=== PATIENT | male | born 1970 | race Hispanic/Latino ===

== ENCOUNTER 2022-02-21 04:37 | Observation (INO) | payer BC ==
--- OUTSIDE RECORDS SUMMARY | 2022-02-21 04:40 | XMS REPORT | Continuity of Care Document ---
:1970 Author Organization [facility] t Address [address] [place] [address] [address]. [address] [place] [address] Care Team Providers Name Role Phone Sulma Robledo Primary Care Physician RON MERRILL Attending Clinician Unavailable Doctor Unassigned, [place] Attending Clinician Unavailable MEHRDAD GODWIN Attending Clinician Unavailable Marianne Guerra MD Attending Clinician Irineo Salomon MD Attending Clinician SULMA WILLIAM Attending Clinician Unavailable SULMA WILLIAM Admitting Clinician Unavailable Payers Payer Name Policy Type Policy Number Effective Date Expiration Date S apple [facility] 2 [id number] 2021 00:00:00 Problems Condition Condition Condition Status Onset Resolution Last Treating Co mments Source Name Details Category Date Date Treatment Clinician Date Elevated Elevated Disease Active Unive rs hemoglobin hemoglobin 5-23 it y of 00:: [address] Elevated Elevated Disease Active Unive rs AST (SGOT) AST (SGOT) 5-23 it y of 00:00: [address] Essential Essential Disease Active Uni vers hypertensi hypertensi 5-17 it y of on on 00:: [address] Obesity Obesity Disease Active Univers (BMI (BMI 5-17 ity of 30.0-34.9) 30.0-34.9[place] [address] [place] [address] Branch Lower Lower Disease Active Univers abdominal abdominal 5-17 ity of pain pain 00:00: [address] [place] Psoriasis Psoriasis Disease Active Uni vers 5-17 ity of 00:00: [place] [address] Medical [place] Allergies, Adverse Reactions, Alerts Allergy Allergy Status Severity Reaction(s) Onset Inactive Treating Comm ents Source Name Type Date Date Clinician NO KNOWN Drug Active Univers ALLERGIE Class ity of S [facility] Social History Social Habit Start Date Stop Date Quantity Comments Source History SDAZ University o f Alcohol Frequency [facility] edical Branch History SDAZ University o f Alcohol Binge [place] [facility] [place] Exposure to Not sure University of SARS-CoV-2 [place] [facility] (event) Branch History [facility] University o f Alcohol Comment [place] [facility] ical [place] History of Snuff User University of tobacco use [facility] Alcohol intake 2021-08-30 2021-08-30 1.14 /d University of 00:00:00 00:00:00 [facility] Tobacco use and 2019-05-31 2019-05-31 Current user Univers ity of exposure 00:00:00 00:00:00 [facility] History SDOH 2019-05-31 2019-05-31 4 University o f Alcohol Std 00:00:00 00:00:00 [facility] Drinks [place] Tobacco Comment 2019-05-31 2019-05-31 several Universit y of 00:00:00 00:00:00 [facility] Sex Assigned At [birth year] Universit y of 00:00:00 00:00:00 [facility] Smoking Status Start Date Stop Date Source Current some day smoker 2019-05-31 00:00:00 [facility] Medications Ordered Filled Start Stop Current Ordering Indication Dosage Frequency Signature Comments Components Source Medication Medication Date Date Medication? Clinician (SIG) Name Name metformin Yes [id number] 500mg Take 1 Univers ER 500 mg 3-14 tablet by ity o f 24 hr 00:00: mouth 2 [place] tablet 00 (two) Medical times [place] daily with meals. methylPREDN 2020-06 Yes [id number] 84mg Take 21 Univers ISolone 1-08 tablets by ity of (MEDROL, 00:00: mouth [place] MATI,) 4 mg 00 SEE-INSTRU Med ical tablets CTIONS. Branch follow package directions diclofenac 2020-06 Yes [id number] 75mg Take 1 U nivers 75 mg EC 1-08 tablet by ity of tablet 00:00: mouth 2 [place] 00 (two) Medical times Branch daily with meals. methylPREDN 2020-06 Yes [id number] 84mg Take 21 Univers ISolone 1-08 tablets by ity of (MEDROL, 00:00: mouth [place] MATI,) 4 mg 00 SEE-INSTRU Med ical tablets CTIONS. Branch follow package directions diclofenac 2020-06 Yes [id number] 75mg Take 1 U nivers 75 mg EC 1-08 tablet by ity of tablet 00:00: mouth 2 [place] 00 (two) Medical times Branch daily with meals. Ustekinumab 2018-06 Yes 45mg inject 45 U nivers (STELARA) 2-13 mg under ity of 45 mg/0.5 09:57: [place] SC 45 once now. Medical injection Branch bisoprolol 2018-06 Yes 5mg Take 5 mg Un holli 5 mg tablet 2-13 by mouth ity of 09:57: daily. [place] [address] Medical [place] Ustekinumab 2018-06 Yes 45mg inject 45 U nivers (STELARA) 2-13 mg under ity of 45 mg/0.5 09:57: [place] SC 45 once now. Medical injection Branch bisoprolol 2018-06 Yes 5mg Take 5 mg Un holli 5 mg tablet 2-13 by mouth ity of 09:57: daily. [place] [address] Medical Branch Ustekinumab 2018-06 Yes 45mg inject 45 U nivers (STELARA) 2-13 mg under ity of 45 mg/0.5 09:57: [place] SC 45 once now. Medical injection Branch Ustekinumab 2018-06 Yes 45mg inject 45 U nivers (STELARA) 2-13 mg under ity of 45 mg/0.5 09:57: [place] SC 45 once now. Medical injection Branch Ustekinumab 2018-06 Yes 45mg inject 45 U nivers (STELARA) 2-13 mg under ity of 45 mg/0.5 09:57: [place] SC 45 once now. Medical injection Branch Immunizations Ordered Filled Immunization Date Status Comments [facility] Immunization Name Name Influenza Virus 2019-03-19 Completed Universit y of Vaccine 00:00:00 [facility] Influenza Virus 2019-03-19 Completed Universit y of Vaccine 00:00:00 [facility] Influenza Virus 2019-03-19 Completed Universit y of Vaccine 00:00:00 [facility] Influenza Virus 2019-03-19 Completed Universit y of Vaccine 00:00:00 [facility] Influenza Virus 2019-03-19 Completed Universit y of Vaccine 00:00:00 [facility] Vital Signs Vital Name Observation Time Observation Value Comments Source Systolic blood 2021-04-26 20:39:00 149 mm[Hg] Univer sity [facility] Diastolic blood 2021-04-26 20:39:00 99 mm[Hg] Unive rsity [facility] Heart rate 2021-04-26 20:27:00 98 /min [facility] Body height 2021-04-26 20:27:00 170.2 cm [facility] Body weight 2021-04-26 20:27:00 92.987 kg [facility] BMI 2021-04-26 20:27:00 32.11 kg/m2 [facility] Procedures Procedure Date / Time Performed Performing Clinician [facility] REFERRAL- 2021-09-06 05:01:00 [facility] Encounters Start End Encounter Admission Attending Care Care Encounter Source Date/Time Date/Time Type Type Clinicians Facility Department ID 2021-11-08 2021-11-08 Outpatient RON MERRILL [id number] [place] 14:00:00 14:00:00 Seybol d 2021-09-06 2021-09-06 Orders Doctor TANG [id number] Univers 00:00:00 00:00:00 Only Unassigned, ZEFERINO [id number] ity of [place] [facility] [id number] [place] [phone] [address] 2021-09-02 2021-09-02 Outpatient Errol GODWIN [facility] [id number] Univers 11:30:00 11:30:00 MEHRDAD [id number] itsuzette [facility] 2021-08-30 2021-08-30 Outpatient Errol GODWIN [facility] [id number] Univers 10:00:00 10:09:25 MEHRDAD [facility] 2021-08-30 2021-08-30 Outpatient Errol GODWIN [facility] [id number] Univers 10:00:00 10:00:00 MEHRDAD [id number] [facility] 2021-08-27 2021-08-[address] [facility] [id number] Univers 00:00:00 00:00:00 KRIST[place] [id number] [id number] [phone] Me dical AND [address] [place] [address] E CLINIC 2021-08-25 2021-08-25 Outpatient Errol GODWIN [facility] [id number] [id number] Univers 15:15:00 15:15:00 MEHRDAD [id number] [facility] 2021-08-25 2021-08-25 Outpatient Errol GODWIN [facility] [id number] Univers 15:00:00 15:05:20 MEHRDAD [facility] 2021-08-25 2021-08-25 Telephone Charlie, [facility] [id number] Univers 00:00:00 00:00:00 KRISTAL [id number] it y of [facility] [id number] [phone] Me dicmn AND [address] [place] [address] E CLINIC 2021-04-26 2021-04-26 [facility] [id number] Univers 14:18:16 14:55:01 Visit [facility] [id number] it y of [place] [id number] [place]?BLEA [phone] Hi dical [address] MEDICAL OFFICE BUILDING 2019-05-31 2019-05-31 Outpatient Errol WILLIAM [facility] [id number] Univers 11:02:12 23:59:00 SULMA [facility] Results This patient has no known results.
[2022-02-21] MEDS ORDERED: MORPHINE 4 MG/ML SYR ONE (05:26)
[2022-02-21] MEDS ORDERED: NA CHLORIDE 0.9% 1,000 ML ONE (05:27)
[2022-02-21] MEDS ORDERED: CEFTRIAXONE 2000 MG/VIAL ONE (05:27)
[2022-02-21] MEDS ORDERED: METRONIDAZOLE 500mg IVPB 500 MG/100 ML BAG IV ONE (05:27)
[2022-02-21] MEDS ORDERED: ONDANSETRON 4 MG/2 ML VIAL ONE (05:27)
[2022-02-21] MEDS ORDERED: NA CHLORIDE 0.9% 100 ML ONE ×2 (05:27→08:45)
[2022-02-21] MEDS ORDERED: CIPROFLOXACIN 400mg IV 400 MG/200 ML BAG IV ONE (05:27)
[2022-02-21 05:43] LABS: Absolute Lymphocytes (CBC) 1.5 K/uL (0.7-4.9); Hematocrit 46.3 % (39.6-49.0); Lymphocytes % 13.9 % (15.3-44.8); MCV 91.2 fL (80-100); MPV 8.6 fL (7.6-11.3); RBC Red Blood Cell Count 5.08 M/uL (4.33-5.43)
[2022-02-21 05:48] LABS: SARS-CoV-2 Antigen Rapid Res Negative (Negative)
[2022-02-21 05:54] LABS: Protime INR 1.12
[2022-02-21 05:58] LABS: Albumin 3.3 g/dL (3.4-5.0); Bilirubin Direct 0.2 mg/dL (0-0.2); Bilirubin Total 0.4 mg/dL (0.2-1.0); Magnesium 2.3 mg/dL (1.8-2.4); Potassium 3.4 mmol/L (3.5-5.1); Protein, Total 7.2 g/dL (6.4-8.2)
[2022-02-21] MEDS ORDERED: POTASSIUM 25 MEQ EFFERV TAB ONE (06:37)
[2022-02-21 07:21] LABS: Urine Blood Negative (Negative); Urine Glucose 3+ (Negative); Urine Protein Negative (Negative); Urine Specific Gravity 1.015 (1.005-1.030)
--- NOTE | 2022-02-21 07:24 | EDPHYS ---
Physician Documentation [facility] Name: Derrick Robles Age: 51 yrs Sex: Male : 1970 Arrival Date: 02/21/2022 Time: 04:40 Bed 8 Private MD: MARIA ESTHER Physician Fili Griggs HPI: 02/21 05:55 This 51 yrs old Male presents to ER via Ambulatory with complaints of derrell Abdominal Pain. 05:55 The patient presents with abdominal pain in the lower abdomen, in the left lower derrell quadrant, abdominal distention in the upper abdomen, in the lower abdomen. Onset: The symptoms/episode began/occurred 2 day(s) ago. The symptoms do not radiate. Associated signs and symptoms: none. The symptoms are described as constant, crampy. Modifying factors: The symptoms are alleviated by nothing, the symptoms are aggravated by movement, pressure, touching the area. Severity of pain: At its worst the pain was moderate in the emergency department the pain is unchanged. The patient has experienced similar episodes in the past, a few times. Historical: - Allergies: 04:46 No Known Allergies; kl - Home Meds: 04:46 metformin 500 mg Oral Tb24 1 tab once daily [Active]; bisoprolol fumarate 5 mg oral tab kl 1 tab once daily [Active]; Jardiance 10 mg oral tab 1 tab once daily [Active]; - PMHx: 04:46 Diabetes mellitus; Hypertensive disorder; kl - Immunization history:: Adult Immunizations not up to date. - Family history:: not pertinent. - Social history:: Smoking status: unknown. ROS: 05:55 Constitutional: Negative for fever, chills, and weight loss, Eyes: Negative for injury, derrell pain, redness, and discharge, ENT: Negative for injury, pain, and discharge, Neck: Negative for injury, pain, and swelling, Cardiovascular: Negative for chest pain, palpitations, and edema, Respiratory: Negative for shortness of breath, cough, wheezing, and pleuritic chest pain, Back: Negative for injury and pain, : Negative for injury, bleeding, discharge, and swelling, MS/Extremity: Negative for injury and deformity, Skin: Negative for injury, rash, and discoloration, Neuro: Negative for headache, weakness, numbness, tingling, and seizure, Psych: Negative for depression, anxiety, suicide ideation, homicidal ideation, and hallucinations, Allergy/Immunology: Negative for hives, rash, and allergies, Endocrine: Negative for neck swelling, polydipsia, polyuria, polyphagia, and marked weight changes. 05:55 Abdomen/GI: Positive for abdominal pain, abdominal cramps, abdominal distension, of the left upper quadrant and left lower quadrant. Exam: 05:55 Constitutional: This is a well developed, well nourished patient who is awake, alert, derrell and in no acute distress. Head/Face: Normocephalic, atraumatic. Eyes: Pupils equal round and reactive to light, extra-ocular motions intact. Lids and lashes normal. Conjunctiva and sclera are non-icteric and not injected. Cornea within normal limits. Periorbital areas with no swelling, redness, or edema. ENT: Nares patent. No nasal discharge, no septal abnormalities noted. Tympanic membranes are normal and external auditory canals are clear. Oropharynx with no redness, swelling, or masses, exudates, or evidence of obstruction, uvula midline. Mucous membranes moist. Neck: Trachea midline, no thyromegaly or masses palpated, and no cervical lymphadenopathy. Supple, full range of motion without nuchal rigidity, or vertebral point tenderness. No Meningismus. Chest/axilla: Normal chest wall appearance and motion. Nontender with no deformity. No lesions are appreciated. Cardiovascular: Regular rate and rhythm with a normal S1 and S2. No gallops, murmurs, or rubs. Normal PMI, no JVD. No pulse deficits. Abdomen/GI: Soft, non-tender, with normal bowel sounds. No distension or tympany. No guarding or rebound. No evidence of tenderness throughout. Back: No spinal tenderness. No costovertebral tenderness. Full range of motion. Male : Normal genitalia with no discharge or lesions. Skin: Warm, dry with normal turgor. Normal color with no rashes, no lesions, and no evidence of cellulitis. MS/ Extremity: Pulses equal, no cyanosis. Neurovascular intact. Full, normal range of motion. Neuro: Awake and alert, GCS 15, oriented to person, place, time, and situation. Cranial nerves II-XII grossly intact. Motor strength 5/5 in all extremities. Sensory grossly intact. Cerebellar exam normal. Normal gait. Psych: Awake, alert, with orientation to person, place and time. Behavior, mood, and affect are within normal limits. 05:55 ECG was reviewed by the Attending Physician. 05:55 Respiratory: the patient does not display signs of respiratory distress, Respirations: normal, Breath sounds: are clear throughout, Respiratory rate: 18 Vital Signs: 04:44 BP 130 / 93; Pulse 81; Resp 18; Temp 97.6(TE); Pulse Ox 99% on R/A; Weight 90.72 kg; kl Height 5 ft. 8 in. (172.72 cm); Pain 9/10; 05:22 BP 131 / 93; Pulse 77; Resp 18; Pulse Ox 99% on R/A; tw5 06:29 Pain 5/10; tw5 06:33 Pulse 75; Resp 18; Pulse Ox 100% on R/A; tw5 07:26 BP 114 / 82; Pulse 68; Resp 16; Pulse Ox 99% ; Pain 2/10; mb8 08:08 BP 119 / 104; Pulse 87; Resp 20; Pulse Ox 98% ; Pain 2/10; mb8 04:44 Body Mass Index 30.41 (90.72 kg, 172.72 cm) kl MDM: 05:28 Patient medically screened. derrell 05:58 Differential diagnosis: bowel obstruction, diverticulitis, gastritis, non-specific abd derrell pain, pancreatitis, Peptic Ulcer Disease. Data reviewed: nurses notes. Data interpreted: quality assurance monitor chassis: not applicable for this patient encounter. Pulse oximetry: on room air is 99 %. Test interpretation: by ED physician or midlevel provider: ECG, plain radiologic studies. Counseling: I had a detailed discussion with the patient and/or guardian regarding: the historical points, exam findings, and any diagnostic results supporting the discharge/admit diagnosis, lab results, radiology results, the need for further work-up and treatment in the hospital. 02/21 05:08 Order name: Basic Metabolic Panel; Complete Time: 06:24 derrell 02/21 05:08 Order name: CBC with Diff; Complete Time: 05:47 derrell 02/21 05:08 Order name: LFT's; Complete Time: 06:24 derrell 02/21 05:08 Order name: Magnesium; Complete Time: 06:24 derrell 02/21 05:08 Order name: NT PRO-BNP; Complete Time: 06:24 derrell 02/21 05:08 Order name: PT-INR; Complete Time: 06:24 derrell 02/21 05:08 Order name: Troponin HS; Complete Time: 06:24 derrell 02/21 05:08 Order name: Lipase; Complete Time: 06:24 [facility] 02/21 05:08 Order name: SARS RAPID; Complete Time: 06:24 derrell 02/21 07:22 Order name: Urine Dipstick-Ancillary; Complete Time: 07:24 EDMS 02/21 08:21 Order name: CBC with Automated Diff EDMS 02/21 08:21 Order name: CBC with Automated Diff EDMS 02/21 08:21 Order name: Comprehensive Metabolic Panel EDMS 02/21 08:21 Order name: Comprehensive Metabolic Panel EDMS 02/21 05:08 Order name: XRAY Chest (1 view) [facility] 02/21 05:08 Order name: EKG; Complete Time: 05:09 [facility] 02/21 05:08 Order name: Cardiac monitoring; Complete Time: 05:24 [facility] 02/21 05:08 Order name: CT Abd/Pelvis - IV Contrast Only [facility] 02/21 08:18 Order name: CONS Physician Consult EDMS 02/21 08:21 Order name: NPO EDMS 02/21 08:21 Order name: Magnesium EDMS 02/21 08:21 Order name: Magnesium EDMS 02/21 11:31 Order name: Glucose, Ancillary Testing EDMS 02/21 05:08 Order name: EKG - Nurse/Tech; Complete Time: 05:24 [facility] 02/21 05:08 Order name: IV Saline Lock; Complete Time: 05:28 [facility] 02/21 05:08 Order name: Labs collected and sent; Complete Time: 05:33 [facility] 02/21 05:08 Order name: O2 Per Protocol; Complete Time: 05:24 [facility] 02/21 05:08 Order name: O2 Sat Monitoring; Complete Time: 05:24 [facility] 02/21 05:08 Order name: Urine Dipstick-Ancillary (obtain specimen); Complete Time: 07:21 [facility] EC:55 Rate is 18 beats/min. Rhythm is regular. QRS [place] is Normal. ME interval is normal. QRS derrell interval is normal. QT interval is normal. No Q waves. T waves are Normal. No ST changes noted. Clinical impression: NSR w/ Non-specific ST/T Changes and No evidence of ischemia. Interpreted by me. Reviewed by me. Administered Medications: 05:30 Drug: NS 0.9% 1000 ml Route: IV; Rate: 1 bolus; Site: right antecubital; tw5 05:34 Drug: morphine 4 mg Route: IVP; Infused Over: 4 mins; Site: right antecubital; tw5 06:29 Follow up: Pain 5/10 Adult; Response: No adverse reaction; Pain is decreased; RASS: tw5 Alert and Calm (0) 05:34 Drug: Zofran (Ondansetron) 4 mg Route: IVP; Site: right antecubital; tw5 06:29 Follow up: Response: No adverse reaction tw5 05:35 Drug: Rocephin (cefTRIAXone) 2 grams Route: IV; Rate: per protocol; Site: right tw5 antecubital; 06:29 Follow up: Response: No adverse reaction; IV Status: Completed infusion; IV Intake: tw5 100ml 05:44 Drug: Cipro (ciprofloxacin) 400 mg Volume: 200 ml; Route: IVPB; Infused Over: 60 mins; tw5 Site: left wrist; 05:44 Drug: Flagyl (metroNIDAZOLE) 500 mg Volume: 100 ml; Route: IVPB; Rate: 200 ml/hr; tw5 Infused Over: 30 mins; Site: left wrist; 06:30 Follow up: Response: No adverse reaction; IV Status: Completed infusion; IV Intake: tw5 100ml 06:31 Drug: Potassium Effervescent Tablet 25 mEq Route: PO; tw5 07:31 Follow up: Response: No adverse reaction mb8 Disposition Summary: 02/21/22 07:24 Hospitalization Ordered Hospitalization Status: Inpatient Admission derrell Provider: Yony Moran derrell Condition: Fair derrell Problem: new derrell Symptoms: have improved derrell Bed/Room Type: Standard derrell Location: Telemetry/MedSurg (Inpatient)(02/21/22 12:52) 3 Room Assignment: [facility](02/21/22 12:52) 3 Diagnosis - Diverticulitis of large intestine with perforation and abscess without bleeding derrell - Abdominal tenderness derrell - Hypokalemia derrell - Type 2 diabetes mellitus with hyperglycemia derrell Forms: - Medication Reconciliation Form derrell - SBAR form derrell Signatures: Dispatcher [employer] Lexy Naranjo RN RN kl Anderson, Corey, MD MD cha Attema, Lee, HOURLY SALES STAFF-C HOURLY SALES STAFF-Cla1 Radha Bolanos RN RN jl7 Dinora Warrne 3 Kimberley Phillips Tiffany 5 Ashok Lee RN mb8 Corrections: (The following items were deleted from the chart) 07:24 Telemetry/MedSurg (Inpatient) [facility] 11: 07:24 [facility] 12:52 11:17 [facility] 12: 11:17 [facility]
--- NOTE | 2022-02-21 07:24 | ER ---
Nurse's Notes [facility] Name: Derrick Robles Age: 51 yrs Sex: Male : 1970 Arrival Date: 02/21/2022 Time: 04:40 Bed 8 Private MD: Diagnosis: Diverticulitis of large intestine with perforation and abscess without bleeding;Abdominal tenderness;Hypokalemia;Type 2 diabetes mellitus with hyperglycemia Presentation: 02/21 04:44 Chief complaint: Patient states: left sided abdominal pain with abdominal bloating kl reports constipation as well. Coronavirus screen: Vaccine status: Patient reports being unvaccinated. Ebola Screen: Patient negative for fever greater than or equal to 101.5 degrees Fahrenheit, and additional compatible Ebola Virus Disease symptoms. Initial Sepsis Screen: Does the patient meet any 2 criteria? No. Patient's initial sepsis screen is negative. Does the patient have a suspected source of infection? No. Patient's initial sepsis screen is negative. Risk Assessment: Do you want to hurt yourself or someone else? Patient reports no desire to harm self or others. Onset of symptoms was February 18, 2022. 04:44 Method Of Arrival: Ambulatory 04:44 Acuity: JENNIFER 3 Triage Assessment: 04:49 General: Appears in no apparent distress. Behavior is calm, cooperative. Pain: kl Complains of pain in left upper quadrant and left lower quadrant Pain currently is 9 out of 10 on a pain scale. Aggravated by increased activity. GI: Reports constipation. Historical: - Allergies: 04:46 No Known Allergies; kl - Home Meds: 04:46 metformin 500 mg Oral Tb24 1 tab once daily [Active]; bisoprolol fumarate 5 mg oral tab kl 1 tab once daily [Active]; Jardiance 10 mg oral tab 1 tab once daily [Active]; - PMHx: 04:46 Diabetes mellitus; Hypertensive disorder; kl - Immunization history:: Adult Immunizations not up to date. - Family history:: not pertinent. - Social history:: Smoking status: unknown. Screenin:06 Abuse screen: Denies threats or abuse. Nutritional screening: No deficits noted. ke1 Tuberculosis screening: No symptoms or risk factors identified. Fall Risk None identified. Assessment: 05:06 GI: Bowel sounds diminished in suprapubic area, right upper quadrant, left upper ke1 quadrant, right lower quadrant and left lower quadrant Abd is soft Abdomen is tender to palpation in left upper quadrant and left lower quadrant. 05:22 General: Appears in no apparent distress. Behavior is calm, cooperative, appropriate tw5 for age. Pain: Pain currently is 5 out of 10 on a pain scale. at worst was 9 out of 10 on a pain scale. Aggravated by "When someone touches my stomach it hurts at a 9 or 10". Neuro: No deficits noted. GI: Reports constipation. 05:24 Cardiovascular: Rhythm is sinus rhythm. tw5 07:24 Reassessment: Patient and/or family updated on plan of care and expected duration. Pain mb8 level reassessed. Patient is alert, oriented x 3, equal unlabored respirations, skin warm/dry/pink. Patient reports feeling better, only details pain when LLQ is palpated. . 07:31 General: Dr. Griggs in room explaining results to patient. Patient will be admitted. .mb8 07:55 General: Dr. Moran in room with patient assessing him. . mb8 08:08 Reassessment: Patient and/or family updated on plan of care and expected duration. Pain mb8 level reassessed. Patient is alert, oriented x 3, equal unlabored respirations, skin warm/dry/pink. Patient states feeling better. Vital Signs: 04:44 BP 130 / 93; Pulse 81; Resp 18; Temp 97.6(TE); Pulse Ox 99% on R/A; Weight 90.72 kg; kl Height 5 ft. 8 in. (172.72 cm); Pain 9/10; 05:22 BP 131 / 93; Pulse 77; Resp 18; Pulse Ox 99% on R/A; tw5 06:29 Pain 5/10; tw5 06:33 Pulse 75; Resp 18; Pulse Ox 100% on R/A; tw5 07:26 BP 114 / 82; Pulse 68; Resp 16; Pulse Ox 99% ; Pain 2/10; mb8 08:08 BP 119 / 104; Pulse 87; Resp 20; Pulse Ox 98% ; Pain 2/10; mb8 04:44 Body Mass Index 30.41 (90.72 kg, 172.72 cm) ED Course: 04:40 Patient arrived in ED. bp1 04:46 Triage completed. kl 04:51 Thien Heard, RN is Primary Nurse. as6 04:51 Primary Nurse role handed off by Thien Heard RN tw5 04:51 Carla Paris is Primary Nurse. tw5 05:05 Fili Griggs MD is Attending Physician. [facility] 05:06 Arm band placed on. ke1 05:07 Bed in low position. Call light in reach. ke1 05:25 XRAY Chest (1 view) In Process Unspecified. EDMS 05:28 Inserted saline lock: 20 gauge in left wrist, using aseptic technique. tw5 05:32 Warm blanket given. Pillow given. business test analyst on. Pulse ox on. NIBP on. 5 05:32 Initial lab(s) drawn, by me, sent to lab. EKG done, by ED staff, reviewed by Fili Griggs MD COVID swab sent to lab. Inserted saline lock: 22 gauge in right antecubital area, using aseptic technique. Blood collected. 05:33 SARS RAPID Sent. 5 05:33 Lipase Sent. 5 05:33 Basic Metabolic Panel Sent. 5 05:33 CBC with Diff Sent. 5 05:33 LFT's Sent. 5 05:33 Magnesium Sent. 5 05:33 NT PRO-BNP Sent. 5 05:33 PT-INR Sent. 5 05:33 Troponin HS Sent. mh5 06:27 CT Abd/Pelvis - IV Contrast Only In Process Unspecified. EDMS 07:00 No provider procedures requiring assistance completed. Patient admitted, IV remains in jl7 place. intact, No redness/swelling at site. 07:07 Primary Nurse role handed off by Carla Paris mb8 07:07 Ashok Lee, GRICELDA is Primary Nurse. mb8 07:22 Yony Moran MD is Hospitalizing Provider. [facility] Administered Medications: 05:30 Drug: NS 0.9% 1000 ml Route: IV; Rate: 1 bolus; Site: right antecubital; tw5 05:34 Drug: morphine 4 mg Route: IVP; Infused Over: 4 mins; Site: right antecubital; tw5 06:29 Follow up: Pain 5/10 Adult; Response: No adverse reaction; Pain is decreased; RASS: tw5 Alert and Calm (0) 05:34 Drug: Zofran (Ondansetron) 4 mg Route: IVP; Site: right antecubital; tw5 06:29 Follow up: Response: No adverse reaction tw5 05:35 Drug: Rocephin (cefTRIAXone) 2 grams Route: IV; Rate: per protocol; Site: right tw5 antecubital; 06:29 Follow up: Response: No adverse reaction; IV Status: Completed infusion; IV Intake: tw5 100ml 05:44 Drug: Cipro (ciprofloxacin) 400 mg Volume: 200 ml; Route: IVPB; Infused Over: 60 mins; tw5 Site: left wrist; 05:44 Drug: Flagyl (metroNIDAZOLE) 500 mg Volume: 100 ml; Route: IVPB; Rate: 200 ml/hr; tw5 Infused Over: 30 mins; Site: left wrist; 06:30 Follow up: Response: No adverse reaction; IV Status: Completed infusion; IV Intake: tw5 100ml 06:31 Drug: Potassium Effervescent Tablet 25 mEq Route: PO; tw5 07:31 Follow up: Response: No adverse reaction mb8 Medication: 10:00 VIS not applicable for this client. jl7 Intake: 06:29 IV: 100ml; Total: 100ml. tw5 06:30 IV: 100ml; Total: 200ml. tw5 Outcome: 07:24 Decision to Hospitalize by Provider. derrell 10:00 Admitted to ER Hold. Please see [facility] for further documentation. jl7 10:00 Condition: stable 10:00 Discharge instructions given to patient, Instructed on the need for admit, Demonstrated understanding of instructions. 13:42 Patient left the ED. jl7 Signatures: Dispatcher [employer] EDMS Lexy Caldwell RN RN kl Anderson, Corey, MD MD cha Martinez, Maria [facility] Radha Bolanos RN RN jl7 Sharonda Anguiano Tiffany tw5 Thien Heard RN RN as6 Jatin Goldberg RN RN ke1 Ashok Lee RN RN mb8 Corrections: (The following items were deleted from the chart) 05:07 05:06 GI: Bowel sounds diminished in suprapubic area, right upper quadrant, left upper ke1 quadrant, right lower quadrant and left lower quadrant Abd is soft Abdomen is tender to palpation ke1
[2022-02-21] MEDS ORDERED: ONDANSETRON 4 MG/2 ML VIAL IV PRN (08:18)
--- NOTE | 2022-02-21 08:20 | P.HP ---
Certification for Inpatient Patient admitted to: Inpatient With expected LOS: >2 Midnights Practitioner: I am a practitioner with admitting privileges, knowledge of patient current condition, hospital course, and medical plan of care. Services: Services provided to patient in accordance with Admission requirements found in Title 42 Section 412.3 of the Code of Federal Regulations Patient History Date of Service: 02/21/22 Reason for admission: Sigmoid diverticulitis, with microperforation History of Present Illness: 51yo M, PMH: NIDDM2, HTN, Psoriasis Presents to ED due to lower abdominal pain for past 2-3 days. Pain worsened with eating and movement. Pain started diffusely and now in LLQ. Does not radiate. Nothing in particular relieved pain. Had similar episode >10 yrs ago. No fever/chills, no sick contacts. CT abd/pelvis revealed sigmoid with likely microperforation. Labs rather unremarkable, vitals WNL and stable. Admitted for further management. Allergies No Known Allergies Allergy (Verified 02/21/22 08:10) Home Medications: Empagliflozin [Jardiance] 1 tab PO DAILY 02/21/22 bisoproloL fumarate [Zebeta*] 1 tab PO DAILY 02/21/22 - Past Medical/Surgical History -: NIDDM2 -: HTN -: back - Family History Family History: Reviewed- Non-Contributory - Social History Smoking Status: Current some day smoker Alcohol use: Yes Place of Residence: Home Review of Systems 10-point ROS is otherwise unremarkable Physical Examination - Physical Exam General: Alert, In no apparent distress, Oriented x3 HEENT: EOMI, Sclerae nonicteric Neck: Supple, No LAD Respiratory: Clear to auscultation bilaterally, Normal air movement Cardiovascular: No edema, Regular rate/rhythm, No murmurs Gastrointestinal: Soft and benign, No rebound, Tenderness (LLQ) Musculoskeletal: No contractures, No tenderness Integumentary: No erythema, No warmth Neurological: Normal speech, Normal strength at 5/5 x4 extr - Studies Laboratory Data (last 24 hrs) 02/21/22 05:28: PT 12.4, INR 1.12 02/21/22 05:28: WBC 11.00 H, Hgb 15.7, Hct 46.3, Plt Count 159 02/21/22 05:28: Sodium 139, Potassium 3.4 L, BUN 11, Creatinine 0.68, Glucose 12 8 H, Magnesium 2.3, Total Bilirubin 0.4, AST 29, ALT 45, Alkaline Phosphatase 96, Lipase 123 Assessment and Plan - Advance Directives Does patient have a Living Will: No Does patient have a Durable POA for Healthcare: No Physician Review Additional Text: Problem list Sigmoid diverticulitis, with microperforation NIDDM 2 HTN Psoriasis Patient reports improvement of his pain, mostly in LLQ now No nausea/vomiting, no fever, no chills Patient does not appear septic Continue n.p.o. with IV fluids for now Empiric antibiotics with Zosyn Pain medication as needed General surgery consult Patient will need colonoscopy next few weeks as an outpatient VTE: Lovenox Code: Full Dispo: Home , ~2 days Time Spent Managing Pts Care (In Minutes): 70
[2022-02-21] MEDS ORDERED: D5.45NS W/KCL 20MEQ 1,000 ML IV ONE (08:45)
[2022-02-21] MEDS ORDERED: PIPERACIL/TAZO 3.375 GM VIAL IV ONE (08:45)
[2022-02-21] MEDS ORDERED: ENOXAPARIN 40 MG/0.4 ML SQ ONE (08:45)
[2022-02-21] MEDS: PIPER TAZO 3.375 GM in NA CHLORIDE 0.9% 100 ML IV SCH ×2 (08:49→17:37)
[2022-02-21] MEDS: ENOXAPARIN 40 MG/0.4 ML SQ SCH (08:49)
[2022-02-21] MEDS: D5.45NS W/KCL 20MEQ 1,000 ML IV SCH ×2 (08:49→19:00)
[2022-02-21 09:02] VITALS: BMI 30.4
[2022-02-21] MEDS: INSULIN -REGULAR HUMAN 50 UNIT/0.5 ML ML SQ SCH ×3 (11:29→20:31)
--- NOTE | 2022-02-21 14:54 | RAD REPORT ---
EXAM DESCRIPTION: RAD - Chest Single View - 02/21/2022 5:23 am CLINICAL HISTORY: The patient is 51 years old and is Male; ABDOMINAL DISTENTION TECHNIQUE: Frontal view of the chest. COMPARISON: No relevant prior studies available. FINDINGS: LUNGS: Expiratory lung volumes bilaterally. PLEURAL SPACE: Unremarkable. No pleural effusion. No pneumothorax. HEART: Unremarkable. No cardiomegaly. MEDIASTINUM: Unremarkable. BONES/JOINTS: Unremarkable. IMPRESSION: No acute findings in the chest. Electronically signed by: César Leon MD 02/21/2022 5:41 AM CDT Due to temporary technical issues with the PACS/Fluency reporting system, reports are being signed by the in house radiologists without review as a courtesy to insure prompt reporting. The interpreting radiologist is fully responsible for the content of the report.
--- NOTE | 2022-02-21 15:11 | RAD REPORT ---
EXAM DESCRIPTION: CT - Abdomen Pelvis W Contrast - 02/21/2022 7:17 am CLINICAL HISTORY: 51 years Male LLQ abdominal pain COMPARISON: None TECHNIQUE: CT of the abdomen and pelvis with intravenous contrast. All CT scans at this facility use dose modulation, iterative reconstruction, and/or weight based dosi ng when appropriate to reduce radiation dose to as low as reasonably achievable. FINDINGS: Lower thorax: Bibasilar atelectasis. Abdomen: Stomach: Within normal limits Liver: No focal lesions. No intrahepatic ductal distention. Gallbladder: Nondistended Pancreas: Within normal limits Spleen: Within normal limits Right kidney: No hydronephrosis. No focal lesion. Left kidney: No hydronephrosis. No focal lesion. Adrenal glands: Within normal limits Vascular structures: Mild atherosclerosis of the abdominal aorta and major branches. Nodes: No lymphadenopathy by size criteria Pelvis: Small bowel: No significant distention. Appendix: Within normal limits Colon: Sigmoid colonic diverticulitis with extensive pericolonic stranding and edema. Questionable mi nimal extraluminal free air along the medial aspect of the sigmoid colon (coronal image 32). No adjac ent rim-enhancing collections. Peritoneum: No free fluid. Bones: No acute bone findings. Bladder: Unremarkable. No pelvic mass or adenopathy. Soft tissues: Moderate fat-containing left inguinal hernia. Small fat-containing umbilical hernia. IMPRESSION: Sigmoid colonic diverticulitis. Questionable minimal extraluminal free air along the med ial aspect of the sigmoid colon, could represent microperforation. No adjacent rim-enhancing collecti ons. Electronically signed by: Kassie Bennett MD 02/21/2022 7:05 AM CDT Due to temporary technical issues with the PACS/Fluency reporting system, reports are being signed by the in house radiologists without review as a courtesy to insure prompt reporting. The interpreting radiologist is fully responsible for the content of the report.
--- NOTE | 2022-02-21 15:54 | P.CNS ---
Date of Consult: 02/21/22 PC: This 51-year-old male presents to the emergency room with severe left lower quadrant abdominal pain for diagnosis and treatment. HPC: Patient had sudden onset of left lower quadrant abdominal pain. Describes as very severe. Hard cramping pain that came in waves. He had previous episodes of diverticulitis approximately 10 to 15 years ago so came to the ER for early treatment. PSHx: Negative PMHx: Diabetes, hypertension Social Hx: No known allergies Sys R: No cough, wheeze, shortness of breath. No chest pain or palpitations. Last colonoscopy was about 10 years ago. O/E: Awake alert vital signs are stable, afebrile HEENT: Nonicteric Chest: Chest movement equal bilaterally Abd: Mild left lower quadrant abdominal pain, no true guarding or rebound [place]: Intact Data: CT scan demonstrates small area of inflammation consistent with diverticulitis and small leak Impression: Acute diverticulitis Plan: The patient has been admitted for IV antibiotics, pain medicine, and observation. He does not require surgical intervention at this time. Anticipate that if patient is doing well tomorrow may be discharged on oral antibiotics and pain meds. I will start him on some clear liquids as he has been n.p.o. since his arrival.
[2022-02-21] MEDS ORDERED: MORPHINE 2 MG/ML SYR IV PRN (16:25)
[2022-02-22] MEDS: PIPER TAZO 3.375 GM in NA CHLORIDE 0.9% 100 ML IV SCH ×2 (00:45→08:39)
[2022-02-22] MEDS: D5.45NS W/KCL 20MEQ 1,000 ML IV SCH (04:56)
[2022-02-22 06:17] LABS: Absolute Lymphocytes (CBC) 1.5 K/uL (0.7-4.9); Hematocrit 45.7 % (39.6-49.0); Lymphocytes % 21.4 % (15.3-44.8); MCV 92.6 fL (80-100); MPV 8.9 fL (7.6-11.3); RBC Red Blood Cell Count 4.93 M/uL (4.33-5.43)
[2022-02-22 06:28] LABS: Albumin 3.2 g/dL (3.4-5.0); Bilirubin Total 0.7 mg/dL (0.2-1.0); Magnesium 2.3 mg/dL (1.8-2.4); Potassium 3.7 mmol/L (3.5-5.1); Protein, Total 6.9 g/dL (6.4-8.2)
[2022-02-22] MEDS: INSULIN -REGULAR HUMAN 50 UNIT/0.5 ML ML SQ SCH (07:30)
[2022-02-22 08:15] VITALS: BP 133/98; TEMP 97.1
[2022-02-22] MEDS: ENOXAPARIN 40 MG/0.4 ML SQ SCH (08:40)
[2022-02-22] MEDS ORDERED: POTASSIUM CL SA 10 MEQ TAB PO ONE (09:00)
--- NOTE | 2022-02-22 09:14 | P.DS ---
Admission Date: 02/21/22 Discharge Date: 02/22/22 Disposition: ROUTINE DISCHARGE Discharge Condition: FAIR Reason for Admission: Sigmoid diverticulitis, with microperforation Consultations: General Surgery- Dr. Silva - Problems (1) Perforation of sigmoid colon due to diverticulitis Status: Acute Brief History of Present Illness: Presents to ED due to lower abdominal pain for past 2-3 days. Pain worsened with eating and movement. Pain started diffusely and later localized to the LLQ. He had similar episode >10 yrs ago. No fever/chills, no sick contacts. CT abd/pelvis revealed sigmoid with likely microperforation. Labs were unremarkable, vitals WNL and stable. Patient admitted for further management. Hospital Course: Patient admitted to the medical floor and treated with IV Zosyn and IV hydration. He was seen by general surgery Dr. Silva who recommended medical management only at this time. Patient was started on a clear liquid diet which he tolerated. He has been asymptomatic today, no nausea or vomiting. Abdomen is benign on examination. Patient is deemed clinically stable for discharge. He is prescribed Cipro and Flagyl for the intra-abdominal infection. Vital Signs/Physical Exam: Temp Pulse Resp BP Pulse Ox 97.1 F 85 14 133/98 H 99 02/22/22 08:00 02/22/22 08:00 02/22/22 08:00 02/22/22 08:00 02/22/22 08:00 General: Alert, In no apparent distress, Oriented x3 HEENT: Mucous membr. moist/pink Neck: JVD not distended Respiratory: Clear to auscultation bilaterally, Normal air movement Cardiovascular: No edema, Regular rate/rhythm, Normal S1 S2, No murmurs Gastrointestinal: Normal bowel sounds, Soft and benign, Non-distended, No tenderness Musculoskeletal: No swelling, No tenderness Integumentary: No rashes, No cyanosis Neurological: Normal strength at 5/5 x4 extr Laboratory Data at Discharge: WBC 7.00 K/uL (4.3-10.9) D 02/22/22 05:29 Hgb 15.1 g/dL (13.6-17.9) 02/22/22 05:29 Hct 45.7 % (39.6-49.0) 02/22/22 05:29 Plt Count 141 K/uL (152-406) L 02/22/22 05:29 PT 12.4 SECONDS (9.5-12.5) 02/21/22 05:28 INR 1.12 02/21/22 05:28 Sodium 138 mmol/L (136-145) 02/22/22 05:29 Potassium 3.7 mmol/L (3.5-5.1) 02/22/22 05:29 BUN 5 mg/dL (7-18) L 02/22/22 05:29 Creatinine 0.70 mg/dL (0.55-1.3) 02/22/22 05:29 Glucose 144 mg/dL (74-106) H 02/22/22 05:29 Magnesium 2.3 mg/dL (1.8-2.4) 02/22/22 05:29 Total Bilirubin 0.7 mg/dL (0.2-1.0) 02/22/22 05:29 AST 29 U/L (15-37) 02/22/22 05:29 ALT 48 U/L (12-78) 02/22/22 05:29 Alkaline Phosphatase 84 U/L (45-117) 02/22/22 05:29 Lipase 123 U/L (73-393) 02/21/22 05:28 Home Medications: Empagliflozin [Jardiance] 1 tab PO DAILY 02/21/22 bisoproloL fumarate [Zebeta*] 1 tab PO DAILY 02/21/22 Ciprofloxacin HCl [Cipro] 500 mg PO BID #14 tab 02/22/22 Codeine/APAP [Tylenol W/Codeine #3 tab] 1 tab PO Q6HP PRN #12 tab 02/22/22 metroNIDAZOLE [Flagyl] 500 mg PO Q8H #21 tab 02/22/22 New Medications: Codeine/APAP [Tylenol W/Codeine #3 tab] 1 tab PO Q6HP PRN #12 tab PRN Reason: Pain Ciprofloxacin HCl [Cipro] 500 mg PO BID #14 tab metroNIDAZOLE [Flagyl] 500 mg PO Q8H #21 tab Diet: ADA Activity: Ad leonardo Followup: Alexi Silva MD [ACTIVE - CAN ADMIT] - 1-2 Weeks (Please call to make an appointment with in 2 weeks. ) Alexi Blankenship MD [Primary Care Provider] - 1-2 Weeks (Please call to make an appointment)
[2022-02-22 11:36] VITALS: O2SAT 99
--- NOTE | 2022-02-22 14:34 | EKG ---
Test Date: 2022-02-21 Test Time: 05:27:01 Student Affairs Dean: NOHELIA MEASUREMENT RESULTS: Intervals: Rate: 76 MD: 156 QRSD: 86 QT: 370 QTc: 416 [place]: P: 58 MD: 156 QRS: 34 T: 12 INTERPRETIVE STATEMENTS: Normal sinus rhythm Normal ECG No previous ECG available for comparison Electronically Signed On 02-22-22 14:30:50 CDT by Talon Newton
== END 2022-02-22 12:06 | disposition home or self-care (01) ==
LOC: ER 04:37 → INTOOBSV 08:16 → ERHOLD 08:16 → 2ND 13:26
PROVIDERS: ADMIT Hospitalist; ATTEND Internal Medicine
DX: K57.32 Diverticulitis of large intestine without perforation or abscess without bleeding (principal); E11.65 Type 2 diabetes mellitus with hyperglycemia; L40.9 Psoriasis, unspecified; E87.6 Hypokalemia; I10 Essential (primary) hypertension; F17.200 Nicotine dependence, unspecified, uncomplicated; Z20.822 Contact with and (suspected) exposure to COVID-19
CPT/HCPCS: 93005; 85025 ×2; 80048; 36415 ×2; 83735 ×2; 85610; 82947 ×4; 80076; 81003; 84484; 83690; 80053; 83880; 74177; 71045; 94760 ×3; 99285; 87811; Q9967; J2543 ×4; J1650; J7030; J2405; J0696; J0744; G0378 ×3

== ENCOUNTER 2024-10-10 09:11 | Day surgery (SDC) | payer OTHER ==
[2024-10-09 15:00] LABS: Absolute Eosinophils 0.2 K/uL (0-0.5); Absolute Lymphocytes (CBC) 1.8 K/uL (0.7-4.9); Absolute Monocytes 0.8 K/uL (0.1-1.3); Absolute Neutrophil 4.1 K/uL (1.8-8.0); Basophils % 0.7 % (0-1.3); Hematocrit 46.8 % (39.6-49.0); Hemoglobin 16.3 g/dL (13.6-17.9); Lymphocytes % 25.6 % (15.3-44.8); MCH 32.9 pg (27.0-35.0); MCHC 34.8 g/dL (32.0-36.0); MCV 94.6 fL (80-100); MPV 9.1 fL (7.6-11.3); Monocytes % 11.1 % (3.3-12.3); Neutrophils % 59.6 % (41.7-73.7); Nucleated Red Blood Cells % 0.1 % (0-0); Platelets 158 thou/uL (152-406); RBC Red Blood Cell Count 4.95 M/uL (4.33-5.43); Red Cell Distribution Width 13.4 % (12.1-15.2)
[2024-10-09 15:15] LABS: Anion Gap 11.9 mEq/L (5.0-15.0); Potassium 3.9 mEq/L (3.5-5.1)
[2024-10-10] MEDS: NA CHLORIDE 0.9% 1,000 ML ONE (09:50)
[2024-10-10] MEDS ORDERED: dexAMETHasone 10 MG/ML VIAL ONE (11:35)
[2024-10-10] MEDS ORDERED: ONDANSETRON 4 MG/2 ML VIAL ONE (11:35)
[2024-10-10] MEDS ORDERED: LIDOCAINE 2% MPF 5 ML VIAL ONE (11:35)
[2024-10-10] MEDS ORDERED: KETOROLAC 30 MG/ML INJ ONE (11:35)
[2024-10-10] MEDS ORDERED: propofoL 200 MG/20 ML VIAL IV ONE (11:36)
[2024-10-10] MEDS ORDERED: FENTANYL CITR 100 MCG/2 ML ONE (11:36)
[2024-10-10] MEDS ORDERED: ROCURONIUM 50 MG/5 ML VIAL IV ONE (11:36)
[2024-10-10] MEDS ORDERED: MIDAZOLAM HCL 2 MG/2 ML INJ ONE (11:36)
[2024-10-10] MEDS: CEFAZOLIN SODIUM 2 GM/VIAL ONE (12:11)
--- NOTE | 2024-10-10 12:11 | EKG ---
Test Date: 2024-10-09 Test Time: 14:36:06 Casting Machine Adjuster: DAYNA MEASUREMENT RESULTS: Intervals: Rate: 92 NV: 156 QRSD: 74 QT: 330 QTc: 408 [place]: P: 51 NV: 156 QRS: 21 T: -2 INTERPRETIVE STATEMENTS: Normal sinus rhythm Nonspecific T wave abnormality Abnormal ECG Compared to ECG 02/21/2022 05:27:01 T-wave abnormality now present Electronically Signed On 10-10-24 12:09:03 CDT by Rafael Faustin
[2024-10-10] MEDS: LIDOCAINE HCL/EPINEPHRINE 20 ML MDV ONE (13:26)
[2024-10-10] MEDS ORDERED: NEOSTIGMINE 1 MG/ML -10 ML VIAL ONE (13:41)
[2024-10-10] MEDS ORDERED: GLYCOPYRROLATE 0.2 MG/ML SYR ONE (13:41)
--- NOTE | 2024-10-10 13:44 | P.OP ---
Preoperative diagnosis: LEFT inguinal hernia Postoperative diagnosis: LEFT inguinal hernia Primary procedure: Open LEFT inguinal hernia repair with mesh Anesthesia: GETA + Local Estimated blood loss: <5cc Specimen: None Findings: Large LEFT inguinal hernia Complications: None Implants: Bard Perfix Large Plug and Patch hernia repair mesh Transferred to: Recovery Room Condition: Good
[2024-10-10] MEDS: HYDROMORPHONE HCL 1 MG/ML INJ ONE (14:29)
[2024-10-10 15:16] VITALS: BP 120/87; TEMP 97.6; O2SAT 96
[2024-10-10] MEDS ORDERED: HYDROCODONE/APAP 10/325 TAB ONE (15:24)
[2024-10-10] MEDS: HYDROCODONE/APAP 10/325 TAB PO ONE (15:30)
--- NOTE | 2024-10-10 17:34 | OP ---
Date of Procedure: 10/10/2024 Surgeon: Akira Baxter MD, Preoperative Diagnosis: Left inguinal hernia. Postoperative Diagnosis: Left inguinal hernia. Procedure Performed: Open left inguinal hernia repair with mesh. Anesthesia: General endotracheal plus local with 1% lidocaine with epinephrine. Estimated Blood Loss: Less than 5 cc. Specimen: None. Findings: Large left inguinal hernia with disruption of the floor of the inguinal canal. Complications: None. Implants: Bard PerFix large plug and patch hernia repair system mesh. Disposition: The patient was transferred to recovery room in good condition. Procedure In Detail: After informed consent was obtained, patient was brought to the operating room, prepped and draped in the usual sterile fashion. After adequate anesthesia was achieved, I made an inguinal incision down to subcutaneous tissues, dissected down through Camper's fat and Clayton's fas guillermo to expose the external oblique aponeurosis. This was opened sharply, made using a 15 blade and o pened in its entirety on the medial and lateral aspect. It was quite thin and alveolar at this point . It was obvious there was a bulging protrusion from the floor of inguinal canal through this area c onsistent with a significant hernia. It was opened in its entirety using the Metzenbaum scissors. A t this point, I encircled the spermatic cord and structures and dissected free the spermatic cord and structures from the hernia. I then reduced the hernia to the preperitoneal space and deployed a lar ge Bard PerFix plug into the preperitoneal space and secured it circumferentially around the shelving edge using 2-0 PDS sutures with good approximation of the tissues. The patient had a Valsalva perfo rmed at this point, which showed no evidence of protrusion of the mesh. It was good anatomic positio n. At this point, I deployed the hernia patch type orientation securing to the pubic tube rcle, medial side and the undersurface of the shelving edge of the both in internal oblique aponeuros is and the shelving edge of the inguinal ligament on the undersurface using the same set 2-0 PDS sutu re in an interrupted fashion reconstituting the deep inguinal ring with the same set of 2-0 PDS sutur e after trimming the mesh appropriately. At this point, the area was copiously irrigated, suctioned out completely dry. Valsalva maneuver was performed with skin showed no evidence of effusion. At th is point, I closed the external oblique aponeurosis using a 3-0 Vicryl suture in a running fashion. I irrigated once again. I then closed Camper's fat and Clayton's fascia as well as the deep dermal pl ane using a 3-0 Vicryl suture in an interrupted fashion. Skin was then closed with a 4-0 Monocryl in a running fashion. Dermabond placed over top. The patient tolerated the procedure without incident or complication, transferred to PACU in good condition. All counts were correct at the end of the c ase. TK/MODL Voice ID: [id number] Report ID: [id number]
== END 2024-10-10 16:07 | disposition home or self-care (01) ==
LOC: OR 09:11
PROVIDERS: ATTEND Surgery
PROC: 0YU60JZ Supplement Left Inguinal Region with Synthetic Substitute, Open Approach (ICD-10-PCS; principal; 2024-10-10 11:30)
DX: K40.90 Unilateral inguinal hernia, without obstruction or gangrene, not specified as recurrent (principal)
CPT/HCPCS: 36415; 80048; 82947; 85025; 93005; J1100; J1171; J2003; J2250; J2405; J2704; J2710; J3010; J7030